=== PATIENT | male | born 1975 | race Caucasian/White ===

== ENCOUNTER → 2018-10-12 | Outpatient (CLI) | payer OTHER ==
--- NOTE | 2018-10-12 07:54 | US ---
EXAMINATION TYPE: US abdomen complete DATE OF EXAM: 10/12/2018 COMPARISON: CT & US 2013 CLINICAL HISTORY: K76.0 Fatty (change of) liver, not elsewhere class. Elevated liver enzymes EXAM MEASUREMENTS: Liver Length: 16.1 cm Gallbladder Wall: 0.2 cm CBD: 0.3 cm Spleen: 11.3 cm Right Kidney: 9.2 x 4.9 x 5.4 cm Left Kidney: 9.7 x 5.7 x 5.4 cm Pancreas: visualized portions appear hyperechoic, limited by overlying midline bowel gas Liver: mildly heterogeneous Gallbladder: wnl Evidence for sonographic Hickman's sign: no CBD: visualized portions wnl, limited by overlying bowel gas Spleen: wnl Right Kidney: wnl Left Kidney: wnl Upper IVC: wnl Abd Aorta: wnl IMPRESSION: 1. Liver is mildly heterogeneous which is a nonspecific pattern can be seen with fatty infiltration, hepatitis or hepatocellular disease.
== END | disposition home or self-care (01) ==
LOC: RADUSWWP 06:40
PROVIDERS: ATTEND Family Medicine
DX: R93.2 Abnormal findings on diagnostic imaging of liver and biliary tract (principal); K76.0 Fatty (change of) liver, not elsewhere classified
CPT/HCPCS: 76700

== ENCOUNTER → 2020-02-23 | Outpatient (CLI) | payer OTHER ==
[2020-02-23 11:01] LABS: HGB 13.9 gm/dL (13.0-17.5); MCH 30.1 pg (25.0-35.0); MCHC 32.4 g/dL (31.0-37.0); MCV 93.2 fL (80.0-100.0); Mean Platelet Volume 6.8; Platelet Count 388 k/uL (150-450); RBC 4.62 m/uL (4.30-5.90); RDW 12.2 % (11.5-15.5)
[2020-02-23 11:50] LABS: Anisocytosis (M) Present; Lymphocytes # (M) 0.99 k/uL (1.0-4.8); Monocytes # (M) 0.44 k/uL (0-1.0); Neutrophils # (M) 9.68 k/uL (1.3-7.7); Neutrophils % (M) 88 %; Nucleated Red Blood Cells 0 /100 WBC (0-0); Total Cells Counted 200
[2020-02-23 11:51] LABS: Poikilocytosis (M) Present
[2020-02-23 11:52] LABS: Total Eosinophil Count 0 #EOS/uL (150-300)
[2020-02-23 20:35] LABS: Red Top (Bentgrass) IgE <0.10 kU/L
[2020-02-23 20:36] LABS: Ragweed,Common IgE <0.10 kU/L
[2020-02-23 20:37] LABS: Birch IgE <0.10 kU/L; Elm IgE <0.10 kU/L; Oak IgE <0.10 kU/L
[2020-02-23 20:38] LABS: Alternaria alternata IgE <0.10 kU/L; Aspergillus fumagatus IgE <0.10 kU/L; Cladosporian herbarum IgE <0.10 kU/L
[2020-02-23 20:39] LABS: Cockroach IgE <0.10 kU/L; Dog Dander IgE 0.14 kU/L
[2020-02-23 20:40] LABS: Dermato. farinae IgE <0.10 kU/L
== END | disposition home or self-care (01) ==
LOC: LABWHC1 10:07
PROVIDERS: ATTEND Internal Medicine Critical Care Medicine
DX: J45.40 Moderate persistent asthma, uncomplicated (principal)
CPT/HCPCS: 36415; 82785; 85008; 85025; 86003

== ENCOUNTER → 2022-06-08 | Outpatient (CLI) | payer OTHER ==
[2022-06-08 20:00] LABS: Chol/HDL Ratio 4.04 Ratio; LDL Cholesterol,Calculated 192.8 mg/dL (0.0-131.0)
== END | disposition home or self-care (01) ==
LOC: LABWHC1 10:36
PROVIDERS: ATTEND Family Medicine
DX: E78.5 Hyperlipidemia, unspecified (principal)
CPT/HCPCS: 36415; 80061